=== PATIENT | female | born 1990 | race Caucasian/White ===

== ENCOUNTER → 2019-05-10 | Outpatient (CLI) | payer BC ==
--- NOTE | 2019-05-10 12:09 | RADIOLOGY REPORT (SQ) ---
EXAM DESCRIPTION: CHEST 2 VIEWS COMPLETED DATE/TIME: 05/10/2019 12:01 pm REASON FOR STUDY: NONSPEC REACTION TO GAMMA INTRFRN RESPNS W/O ACTV TUBRCLOSIS COMPARISON: None. EXAM PARAMETERS: NUMBER OF VIEWS: two views TECHNIQUE: Digital Frontal and Lateral radiographic views of the chest acquired. RADIATION DOSE: NA LIMITATIONS: none FINDINGS: LUNGS AND PLEURA: No opacities, masses or pneumothorax. No pleural effusion. MEDIASTINUM AND HILAR STRUCTURES: No masses or contour abnormalities. HEART AND VASCULAR STRUCTURES: Heart normal size. No evidence for failure. BONES: No acute findings. HARDWARE: None in the chest. OTHER: No other significant finding. IMPRESSION: NO ACUTE RADIOGRAPHIC FINDING IN THE CHEST. TECHNICAL DOCUMENTATION: JOB ID: [id number] [employer]- All Rights Reserved Reading location - IP/workstation name: [email or web address]
== END ==
LOC: RAD 11:39
PROVIDERS: ATTEND Internal Medicine
DX: R76.12 Nonspecific reaction to cell mediated immunity measurement of gamma interferon antigen response without active tuberculosis (principal)
CPT/HCPCS: 71046

== ENCOUNTER 2019-06-17 16:32 | Emergency (ER) | payer BC ==
[2019-06-17] MEDS ORDERED: ONDANSETRON HCL INJ/PF 4 MG/2 ML SDV IV ONE (16:55)
[2019-06-17] MEDS ORDERED: NORMAL SALINE 1000 ML 1,000 ML IV ONE (16:55)
--- NOTE | 2019-06-17 16:56 | ER Document Report ---
ED Medical Screen (RME) - General Chief Complaint: Abdominal Pain Stated Complaint: ABDOMINAL PAIN Time Seen by Provider: 06/17/19 16:51 Primary Care Provider: NICKI MANJARREZ [Primary Care Provider] - Follow up as needed Notes: Patient presents complaining of upper abdominal pain to the epigastric area that radiates to her back. Patient reports nausea and vomiting x4 episodes today. No fever. I have greeted and performed a rapid initial assessment of this patient. A comprehensive ED assessment and evaluation of the patient, analysis of test results and completion of the medical decision making process will be conducted by additional ED providers. TRAVEL OUTSIDE OF THE [place] IN LAST 30 DAYS: No - Related Data Allergies/Adverse Reactions: No Known Allergies Allergy (Verified 06/17/19 16:33) Physical Exam - Vital signs Vitals: Temp Pulse Resp BP Pulse Ox 98.7 F 108 H 16 125/75 100 06/17/19 16:48 06/17/19 16:48 06/17/19 16:48 06/17/19 16:48 06/17/19 16:48 - Abdominal Tenderness: Tender - Epigastric Course - Vital Signs Vital signs: Temp Pulse Resp BP Pulse Ox 98.7 F 108 H 16 125/75 100 06/17/19 16:48 06/17/19 16:48 06/17/19 16:48 06/17/19 16:48 06/17/19 16:48 Doctor's Discharge - Discharge Referrals: NICKI MANJARREZ [Primary Care Provider] - Follow up as needed
[2019-06-17 17:46] LABS: ABSOLUTE EOSINOPHILS # (AUTO) 0.1 10^3/uL (0.0-0.6); ABSOLUTE LYMPHOCYTES (AUTO) 0.9 10^3/uL (0.5-4.7); ABSOLUTE MONOCYTES (AUTO) 0.4 10^3/uL (0.1-1.4); ABSOLUTE NEUT (AUTO) 11.1 10^3/uL (1.7-8.2); BASOPHILS % (AUTO) 0.1 % (0-2); EOSINOPHILS % (AUTO) 0.6 % (0-6); HEMATOCRIT 39.7 % (36.0-47.0); HEMOGLOBIN 13.4 g/dL (12.0-15.5); LYMPHOCYTES % (AUTO) 7.6 % (13-45); MEAN CORPUSCULAR HEMOGLOBIN 27.8 pg (27.0-33.4); MEAN CORPUSCULAR HGB CONC 33.7 g/dL (32.0-36.0); MEAN CORPUSCULAR VOLUME 83 fl (80-97); MONOCYTES % (AUTO) 2.9 % (3-13); PLATELET COUNT 302 10^3/uL (150-450); RED BLOOD COUNT 4.81 10^6/uL (3.72-5.28); RED CELL DISTRIBUTION WIDTH 12.9 % (11.5-14.0); SEGMENTED NEUTROPHILS % (AUTO) 88.8 % (42-78); TOTAL CELLS COUNTED % (AUTO) 100 %; WHITE BLOOD COUNT 12.5 10^3/uL (4.0-10.5)
--- NOTE | 2019-06-17 18:00 | ER Document Report ---
ED General - General Chief Complaint: Abdominal Pain Stated Complaint: ABDOMINAL PAIN Time Seen by Provider: 06/17/19 16:51 Primary Care Provider: NAOMY LIZAMA MD [ACTIVE STAFF] - Follow up as needed DEL CHENEY MD [ACTIVE STAFF] - Follow up as needed NICKI MANJARREZ [Primary Care Provider] - Follow up as needed TRAVEL OUTSIDE OF THE [place] IN LAST 30 DAYS: No - HPI Notes: Patient is a 28-year-old female with a history of hypothyroidism and interstitial cystitis who presents complaining of mid to upper abdominal discomfort that is described as a burning sensation with intermittent generalized cramping that began today with nausea and vomiting x4. She has not had any hematemesis, melena, or hematochezia. On occasion the burning pain will travel to her back. Patient states that she did have a bowel movement this morning, but was very difficult and small/hard. She has not had any vaginal discharge, odor, or bleeding. Denies drug allergies. No surgical history to her abdomen. No concern of STD or STI and she does not want testing for it. Denies any headache, fever, neck pain, URI, sore throat, chest pain, palpitations, syncope, cough, shortness of breath, wheeze, dyspnea, diarrhea, urinary retention, dysuria, hematuria, loss of control of bowel or bladder, numbness/tingling, saddle anesthesia, muscle paralysis/weakness, or rash. - Related Data Allergies/Adverse Reactions: No Known Allergies Allergy (Verified 06/17/19 16:33) Past Medical History - Social History Smoking Status: Never Smoker Family History: Reviewed & Not Pertinent Patient has suicidal ideation: No Patient has homicidal ideation: No Review of Systems - Review of Systems -: Yes All other systems reviewed and negative Physical Exam - Vital signs Vitals: Temp Pulse Resp BP Pulse Ox 98.7 F 108 H 16 125/75 100 06/17/19 16:48 06/17/19 16:48 06/17/19 16:48 06/17/19 16:48 06/17/19 16:48 - Notes Notes: PHYSICAL EXAMINATION: GENERAL: Well-appearing, well-nourished and in no acute distress. HEAD: Atraumatic, normocephalic. EYES: Pupils equal round and reactive to light, extraocular movements intact, sclera anicteric, conjunctiva are normal. ENT: Nares patent and without discharge. oropharynx clear without exudates. No tonsilar hypertrophy or erythema. Moist mucous membranes. NECK: Normal range of motion, supple without lymphadenopathy LUNGS: Breath sounds clear to auscultation bilaterally and equal. No wheezes rales or rhonchi. HEART: Regular rate and rhythm without murmurs, rubs, gallops. ABDOMEN: Soft, nondistended abdomen. No guarding, no rebound. Normal bowel sounds present. No CVA tenderness bilaterally. + mild generalized tenderness (not sharp per pt) with negative fletcher and no tenderness at [place]. Musculoskeletal: FROM to passive/active. Strength 5+/5. Extremities: No cyanosis, clubbing, or edema b/l. Peripheral pulses 2+. Capillary refill less than 3 seconds. NEUROLOGICAL: Normal speech, normal gait. PSYCH: Normal mood, normal affect. SKIN: Warm, Dry, normal turgor, no rashes or lesions noted. Course - Re-evaluation Re-evalutation: 06/17/19 18:41 Patient is an afebrile, well-hydrated, 28-year-old female who presents with generalized unspecified abdominal pain with constipation noted. Vitals are acceptable without significant tachycardia, tachypnea, or hypoxia. PE is otherwise unremarkable. Patient is nontoxic-appearing and is able to tolerate p.o. without difficulty. Labs are unremarkable. KUB shows moderate stool and ultrasound unremarkable. Her abd is currently soft and non-tender. She did receive fluids and meds here in the ED. no further work-up warranted at this time. I did review CT imaging with the patient and they would like to hold off at this time which I am in agreement with based on her current work-up and exam findings. Low suspicion/risk for acute appendicitis, bowel obstruction, acute cholecystitis, acute cholangitis, perforated diverticulitis, incarcerated hernia, pancreatitis, perforated ulcer, peritonitis, sepsis, pelvic inflammatory disease, ectopic , tubo-ovarian abscess, ovarian torsion, or other systemic emergent condition at this time. Patient is aware that her condition can change from initial presentation and she needs to monitor symptoms closely and seek medical attention if any acute changes. Conservative measures otherwise for symptoms. Recheck with your PCM in 2-3 days. Consider consult with a fha underwriter. Return to the ED with any worsening/concerning symptoms otherwise as reviewed in discharge. Patient is in agreement. - Vital Signs Vital signs: Temp Pulse Resp BP Pulse Ox 98.7 F 108 H 16 125/75 100 06/17/19 16:48 06/17/19 16:48 06/17/19 16:48 06/17/19 16:48 06/17/19 16:48 - Laboratory Result Diagrams: 06/17/19 17:19 06/17/19 17:19 Laboratory results interpreted by me: 06/17/19 06/17/19 17:19 17:19 WBC 12.5 H Lymph % (Auto) 7.6 L Hardin % (Auto) 2.9 L Absolute Neuts (auto) 11.1 H Seg Neutrophils % 88.8 H Urine Ketones TRACE H Urine Blood SMALL H Discharge - Discharge Clinical Impression: Generalized abdominal discomfort Condition: Stable Disposition: HOME, SELF-CARE Instructions: Abdominal Pain ([facility]) Additional Instructions: Maintain adequate fluid and food intake [place] diet ([employer] Bananas, rice, apples, toast, etc Zofran as needed tylenol if needed Monitor for any worsening symptoms Make sure you are staying hydrated enough to urinate and have normal BM's Recheck with your PCM in 2-3 days Consider consult with Gastroenterology for ongoing/worsening symptoms Return to the ED with any worsening symptoms and/or development of fever, headache, chest pain, palpitations, syncope, shortness of breath, trouble breathing, abdominal pain, n/v/d, blood in stool/urine, weakness, or other worsening symptoms that are concerning to you. Prescriptions: Na Phos,M-B/Na Phos,Di-Ba [Fleet Enema (Adult) 133 ml] 1 applic WA DAILYP PRN #1 enema PRN Reason: Polyethylene Glycol 3350 [Miralax] 1 cap PO DAILY #527 powder Ondansetron [Zofran Odt 4 mg Tablet] 1 - 2 tab PO Q4H PRN #15 tab.rapdis PRN Reason: For Nausea/Vomiting Referrals: NICKI MANJARREZ [Primary Care Provider] - Follow up as needed DEL CHENEY MD [ACTIVE STAFF] - Follow up as needed NAOMY LIZAMA MD [ACTIVE STAFF] - Follow up as needed
[2019-06-17 18:02] LABS: ALBUMIN 4.4 g/dL (3.5-5.0); ALKALINE PHOSPHATASE 56 U/L (38-126); ANION GAP 11 (5-19); ASPARTATE AMINO TRANSFERASE 19 U/L (14-36); BILIRUBIN,DIRECT 0.2 mg/dL (0.0-0.4); BILIRUBIN,TOTAL 0.8 mg/dL (0.2-1.3); BLOOD UREA NITROGEN 15 mg/dL (7-20); CALCIUM 9.6 mg/dL (8.4-10.2); CARBON DIOXIDE 27 mmol/L (22-30); CHLORIDE 101 mmol/L (98-107); GLUCOSE 102 mg/dL (75-110); POTASSIUM 4.7 mmol/L (3.6-5.0); TOTAL PROTEIN 7.7 g/dL (6.3-8.2)
[2019-06-17 18:04] LABS: APPEARANCE,URINE SLIGHTLY-CLOUDY; BILIRUBIN,URINE NEGATIVE (NEGATIVE); COLOR,URINE YELLOW; GLUCOSE, URINE NEGATIVE (NEGATIVE); KETONES,URINE TRACE mg/dL (NEGATIVE); LEUKOCYTE ESTERASE,URINE NEGATIVE (NEGATIVE); NITRITE,URINE NEGATIVE (NEGATIVE); PROTEIN,URINE NEGATIVE (NEGATIVE); URINE SPECIFIC GRAVITY 1.024; UROBILINOGEN,URINE NEGATIVE mg/dL (<2.0)
--- NOTE | 2019-06-17 18:04 | RADIOLOGY REPORT (SQ) ---
EXAM DESCRIPTION: U/S ABDOMEN LIMITED W/O DOP COMPLETED DATE/TIME: 06/17/2019 5:52 pm REASON FOR STUDY: upper abd pain COMPARISON: None. TECHNIQUE: Dynamic and static grayscale images acquired of the abdomen and recorded on PACS. Additio nal selected color Doppler and spectral images recorded. LIMITATIONS: None. FINDINGS: PANCREAS: No masses. Visualized pancreatic duct normal caliber. LIVER: No masses. Echotexture normal. LIVER VASCULATURE: Normal directional flow of the main portal vein and hepatic veins. GALLBLADDER: No stones. Normal wall thickness. No pericholecystic fluid. ULTRASOUND-DETECTED COLE'S SIGN: Negative. INTRAHEPATIC DUCTS AND COMMON DUCT: CBD and intrahepatic ducts normal caliber. No filling defects. INFERIOR VENA CAVA: Normal flow. AORTA: No aneurysm identified. RIGHT KIDNEY: Normal size. Normal echogenicity. No solid or suspicious masses. No hydronephros is. No calcifications. PERITONEAL AND RIGHT PLEURAL SPACE: No ascites or effusions. OTHER: No other significant findings. IMPRESSION: NO ACUTE FINDINGS. TECHNICAL DOCUMENTATION: JOB ID: [id number] [employer]- All Rights Reserved Reading location - IP/workstation name: [email or web address]
--- NOTE | 2019-06-17 18:23 | RADIOLOGY REPORT (SQ) ---
EXAM DESCRIPTION: KUB/ABDOMEN (SINGLE VIEW) COMPLETED DATE/TIME: 06/17/2019 6:15 pm REASON FOR STUDY: abd pain, ?constipation COMPARISON: None. NUMBER OF VIEWS: One view. TECHNIQUE: Supine radiographic image of the abdomen acquired. LIMITATIONS: None. FINDINGS: BOWEL GAS PATTERN: Normal bowel gas pattern. No dilated loops. Moderate stool in the desc ending colon. CALCIFICATIONS: No suspicious calcifications. SOFT TISSUES: No gross mass or suggestion of organomegaly. HARDWARE: None in the abdomen. BONES: No acute fracture. No worrisome bone lesions. OTHER: No other significant finding. IMPRESSION: NO RADIOGRAPHIC EVIDENCE FOR ACUTE ABDOMINAL DISEASE. MODERATE STOOL IN THE DESCENDING COLON. TECHNICAL DOCUMENTATION: JOB ID: [id number] [employer]- All Rights Reserved Reading location - IP/workstation name: [email or web address]
[2019-06-17 19:27] VITALS: BP 120/71
== END 2019-06-17 19:27 | disposition home or self-care (01) ==
LOC: ER 16:32
DX: R10.84 Generalized abdominal pain (principal); R10.10 Upper abdominal pain, unspecified; R11.2 Nausea with vomiting, unspecified
CPT/HCPCS: 99284; 96361; 96374; 36415; 83690; 84703; 85025; 80053; 81001; 74018; 76705; J2405; J7030

== ENCOUNTER → 2020-01-08 | Outpatient (CLI) | payer BC | LOC: OD 10:31 | PROVIDERS: ATTEND Internal Medicine Pulmonary Disease | DX: J02.0 Streptococcal pharyngitis (principal) | CPT/HCPCS: 87880 ==

== ENCOUNTER → 2020-08-29 | Outpatient (CLI) | payer BC ==
[2020-08-29 10:04] VITALS: BP 144/90
--- NOTE | 2020-08-29 10:04 | ER [facility] ASSESSMENT REPORT ---
Intake - In the Last 14 days Have you traveled outside [place]?: No Have you been in close contact with someone CONFIRMED: Yes Worked in Healthcare?: Yes - Symptoms Subjective Fever([place] feverish): No Chills: No Muscule Aches: No Runny Nose: No Sore Throat: Yes Cough (New or worsening chronic cough): Yes Shortness of breath: No Nausea or Vomiting: No Headache: No Abdominal Pain: No Diarrhea(3 or more loose stools in last 24 hours): No - Do you have any of the following Chronic lung disease: Asthma or emphysema or COPD: No Cystic Fibrosis: No Diabetes: Yes High Blood Pressure: No Cardiovascular Disease: No Chronic Kidney Disease: No Chronic Liver Disease: No Chronic blood disorder like Sickle Cell Disease: No Weak immune system due to disease or medication: No Neurologic condition that limits movement: No Developmental delay - Moderate to Severe: No Recent (within past 2 weeks) or current : No Morbid Obesity (>100 pounds over ideal weight): No - Objective Temperature: 98.8 F Pulse Rate: 91 Respiratory Rate: 18 Blood Pressure: 144/90 O2 Sat by Pulse Oximetry: 96 Objective: Given above, testing performed: If Testing Performed: Test Specimen Type Sent to General - General Mode of Arrival: Ambulatory Information source: Patient Notes: Patient presents to the [facility] for screening for the coronavirus. Patient reports having sore throat and cough for the past 4 days. 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 - Related Data Allergies/Adverse Reactions: No Known Allergies Allergy (Verified 06/17/19 16:33) Past Medical History - General Information source: Patient - Social History Smoking Status: Never Smoker Family History: Reviewed & Not Pertinent Endocrine Medical History: Reports: Hx Diabetes Mellitus Type 2, Hx Hypothyroidism Surgical Hx: Negative Physical Exam - Notes Notes: The patient was evaluated during the global Covid 19 pandemic, and that diagnosis was suspected/considered upon their initial presentation. Their evaluation, treatment and testing was consistent with current guidelines for patients who present with complaints or symptoms that may be related to Covid 19. Full physical exam could not be performed due to covid 19 isolation protocols. Constitutional: Nontoxic appearance, no acute distress Eyes: Nonicteric, extraocular movements intact, sclera clear ENT: Posterior pharynx clear without exudates Cardiovascular: Heart rate and rhythm regular, no JVD Respiratory: Breath sounds clear bilaterally, nonlabored breathing, no use of accessory muscles, no tachypnea Gastrointestinal: Abdomen not distended Muculoskeletal: Moves all extremities well, normal gait Skin: Normal color Neuro: Awake alert oriented, normal speech Psych: Normal mood and affect Diagnostic Results Laboratory Results: Patient presents with upper respiratory symptoms worrisome for possible Covid 19. Patient does not have emergency worrying symptoms such as difficulty breathing, shortness of breath, chest pain, pressure, confusion or cyanosis. Patient appears suitable for discharge as vital signs are stable and patient is nontoxic in appearance. Good return precautions have been discussed with patient, patient verbalized understanding and is agreeable with discharge plan of care at this time. Patient Education/Counseling Counseling/Education: Patient was provided with discharge information including: As a person under investigation for Covid 19, the [place] department of Health and Human Services, division of public health advises you to adhere to the following guidance until your test results are reported to you. If your test result is positive, you will receive additional information from your provider and your local health department at that time. Remain at home until you are cleared by the health provider or public health authorities. Keep a log of visitors to your home, notify any visitors to your home of your isolation status. If you plan to move to a new address or leave the [facility], notify the local health department in your County. Call your doctor or seek care if you have an urgent medical need. Before seeking medical care, call ahead to get instructions from the provider before arriving at the medical office clinic or hospital. Notify them that you are being tested for the virus that causes Covid 19 so that arrangements can be made, as necessary, to prevent transmission to others in the healthcare setting. Next, notify the local health department in your county. If a medical emergency arises and you need to call 911, inform the first responders that you are being tested for the virus that causes Covid 19. Next, notify the local health department in your county. [facility] Discharge - Discharge Clinical Impression: Encounter for screening laboratory testing for COVID-19 virus Condition: Stable Disposition: Home; Selfcare
[2020-08-29 10:41] LABS: A TYPE INFLUENZA AG NEGATIVE (NEGATIVE); B INFLUENZA AG NEGATIVE (NEGATIVE)
--- OUTSIDE RECORDS SUMMARY | 2020-08-30 15:13 | XMS REPORT ---
:1990 Author Organization [facility] Address [address] [place] [address] Care Team Providers Name Role Phone Slim Smalls III, MD Attending Clinician Unavailable Allergies, Adverse Reactions, Alerts Allergy Allergy Status Severity Reaction(s) Onset Inactive Treating C hermannments Name Type Date Date Clinician Insulin Insulin Active Sulfa Sulfa Active Drugs Drugs Medications Ordered Filled Start Stop Current Ordering Indication Dosage Frequency Signature Comments Components Medication Medication Date Date Medication? Clinician (SIG) Name Name Amitriptyli Yes Slim Amitriptyl ne HCl - 25 3-31 Serina ine HCl - MG Oral 00:00: BIRD MARINA 25 MG Oral Tablet 00 Tablet take one/half at bedtime Quantity: 30 Refills: 12 Slim Smalls III, MD Start : 0Active rifAMPin Dustin Perez rifAMPin 300 MG Oral 7-16 Mcnair 300 MG Capsule 00:00: D.O. Oral 00 Capsule take one tab po q day for 4 months for Quantity: 120 Refills: 0 Xu DChris Alba Start : 9Active metFORMIN 2011-10 Dustin Jordan Q0.5D metFORMIN HCl - 500 -27 Clarissa MARINA HCl - 500 MG Oral 00:00: MG Oral Tablet 00 Tablet TAKE 1 TABLET TWICE DAILY. Refills: 0 Julian Romo MD Start : 2Active Ocella Yes Default Ocella 3-0.03 MG - Urology 3-0.03 MG Oral Tablet 00:00: Oral 00 Tablet 1 po qd Quantity: 0 Refills: 0 Urology, Default Start : 2Active Synthroid Yes Synthroid 175 MCG 175 MCG Oral Tablet Oral Tablet Refills: 0 Active Phentermine Yes Phentermin HCl - 30 MG e HCl - 30 Oral MG Oral Capsule Capsule Refills: 0 Active Problems Condition Condition Condition Status Onset Resolution Last Treatin g Comments Name Details Category Date Date Treatment Clinician Date Acute lower Acute lower Problem Active UTI UTI IBS IBS Problem Active (irritable (irritable bowel bowel syndrome) syndrome) Migraine Migraine Problem Active headache headache Fatigue Fatigue Problem Active Hematuria Hematuria Problem Active Arthralgia Arthralgia Problem Active Obesity Obesity Problem Active (BMI (BMI 30.0-34.9) 30.0-34.9) PCOS PCOS Problem Active (polycystic (polycystic ovarian ovarian syndrome) syndrome) Chronic low Chronic low Problem Active back pain back pain Autoimmune Autoimmune Problem Active disorder disorder Chronic Chronic Problem Active interstitia interstitia l cystitis l cystitis Procedures Procedure Date / Time Performed Performing Clinician Devic e Urinalysis 2020-04-12 00:00:00 Results This patient has no known results. Assessments Condition Name Status Diagnosis Date Treating Clinici an Chronic interstitial cystitis Active Fatigue Active IBS (irritable bowel syndrome) Active Arthralgia Active Migraine headache Active Chronic interstitial cystitis Active Fatigue Active Hematuria Active Chronic low back pain Active PCOS (polycystic ovarian syndrome) Active Autoimmune disorder Active Obesity (BMI 30.0-34.9) Active Arthralgia Active Chronic interstitial cystitis Active Chronic interstitial cystitis Active Chronic interstitial cystitis Active Encounters Start End Encounter Admission Attending Care Care Encounter Date/Time Date/Time Type Type Clinicians Facility Department ID 2020-01-16 2020-01-16 [id number] 15:30:00 15:30:00 Slim Smalls III, III, Bob, MD 2020-01-16 2020-01-16 Appointment; [facility] [id number] 14:30:00 14:30:00 Ultrasound Room 1, Krista ocampo MD 2019-12-14 2019-12-14 Appointment; [facility] [id number] 08:30:00 08:30:00 Antonio White 2019-11-09 2019-11-09 [facility] [id number] 15:30:00 15:30:00 Slim Smalls III, III, Bob, MD 2019-04-14 2019-04-14 Appointment; [facility] [id number] 13:30:00 13:30:00 Chris Mcnair D.O. 2018-11-09 2018-11-09 Appointment[facility] [id number] 15:30:00 15:30:00 Slim Smalls III, III, Bob, MD Family History Family Member Diagnosis Comments Start Date Stop Date Unspecified Family history of Breast Cancer Family History Unspecified Family history of Type 1 Diabetes Family History Mellitus Unspecified Family history of Lung Cancer Family History Plan of Treatment Planned Activity Planned Date Details Comments Future Scheduled Test [code = ] Social History Smoking Status Start Date Stop Date Never smoked tobacco (finding) Vital Signs This patient has no known vital signs.
== END ==
LOC: RDC 09:31
PROVIDERS: ATTEND Nurse Practitioner Family
DX: U07.1 COVID-19 (principal); R05 Cough; J02.9 Acute pharyngitis, unspecified; E11.9 Type 2 diabetes mellitus without complications; E03.9 Hypothyroidism, unspecified
CPT/HCPCS: 87070; 87880; 87804; 99201; 99211; U0003; C9803; 87635